=== PATIENT | female | born 1965 | race Two or more races ===

== ENCOUNTER 2019-05-14 11:10 | Outpatient (CLI) | payer OTHER | END 2019-05-14 11:15 | disposition home or self-care (01) | LOC: NUCLEAR 11:10 | DX: M81.0 Age-related osteoporosis without current pathological fracture (principal) ==

== ENCOUNTER 2019-05-18 08:59 | Outpatient (CLI) | payer OTHER | END 2019-05-18 09:03 | disposition home or self-care (01) | LOC: MAMO-SONO 08:59 | DX: Z12.31 Encounter for screening mammogram for malignant neoplasm of breast (principal); Z87.898 Personal history of other specified conditions; N60.11 Diffuse cystic mastopathy of right breast; N60.12 Diffuse cystic mastopathy of left breast ==